=== PATIENT | male | born 1975 | race Asian ===

== ENCOUNTER 2022-08-26 13:01 | Outpatient (CLI) | payer OTHER ==
[2022-08-26 16:26] VITALS: BP 138/82
--- NOTE | 2022-08-26 16:26 | SLEEP CARE CONSULTATION ---
Information from patient questionnaire entered by Josefa Lazo. I have reviewed and concur with the information entered by Josefa Lazo. This document represents the service I personally performed and the decisions made by me, Coby Salazar MD, [facility]. History of Present Illness Service Date and Time: 08/26/2022 1301 Reason for Visit: New patient Chief Complaint: reports: Other (F/U) Date of Onset: 2021 Usual bedtime: 9PM Time it takes to fall asleep: 15-30MIN Snores at night: Yes Observed to quit breathing while asleep: Yes Sleeps alone due to snoring: Yes Number of times waking at night: 3-4 Reasons for waking at night: reports: Other (UNKNOWN) Toss, Turn, or Twitch while sleeping: Yes Recalls having dreams: Yes Usually gets out of bed at: 515AM Feels refreshed in the morning: Yes Morning headache: No Sleepy or fatigued during the day: Yes Ever fallen asleep while driving: No Takes day naps: No Dreams during day naps: No Prior sleep studies: Yes Year and Where: [facility] 2020 Additional HPI information: I had the pleasure of seeing Mr. Edwards today regarding obstructive sleep apnea- hypopnea. As you know, he is a 47-year-old gentleman who was diagnosed with the sleep-disordered breathing in [facility]. The AHI was 28 by a home sleep apnea test (HSAT). He was prescribed a CPAP device set at 5 15 cmH2O. He uses occasionally. The compliance data show usage in 59 out of the past 90 nights, averaging 6 hours a night. The residual AHI is 3.0 and average air leak is 0.1 L/minute. He wears a Respironics DreamWear nasal pillows. He complains of not being able to roll around. He gets his supplies from [facility]. He finds the treatment beneficial. 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 Patient is and lives in . Have you smoked in the past 12 months: No Years of smokin Quit date: 2010 Alcohol use: Yes Alcohol amount and frequency: 1 SERVING 1XMONTH Caffeine use: No Family History Family history of sleep disordered breathing: Yes Family Hx Sleep Apnea: Mother: Snoring, Father: Snoring, Sleep apnea - Untreated, Sibling: Snoring, Sleep apnea - Untreated Allergies and Home Medications Known drug allergies: No Drug allergies reviewed: Yes Home medication list reviewed: Yes Review of Systems Weight gain over past 5 years: 30 Cardiovascular: reports: high blood pressure Gastrointestinal: reports: heartburn, nausea, vomitting, abdominal pain Neurological: reports: headaches Psychiatric: reports: depression Ear/Nose/Throat: reports: nasal congestion, sinus problems, dry mouth/throat Endocrine: denies: thyroid disease, history of goiter, sluggishness, too hot or cold, excessive thirst, increased appetite, increased urination, unexplained weakness, other Musculoskeletal: reports: joint pain, back pain Immunologic: denies: sneezing, rash, itching, allergies to food or environment, other Physical Exam Vital signs obtained and entered by: JOSEFA Pope MA Blood Pressure: 138/82 (LEFT ARM) Cuff size: regular Heart Rate: 79 O2 Saturation: 96 Height: 4 ft 8 in Weight: 231 lb 6.4 oz Body Mass Index: 51.8 BMI Classification: Morbidly Obese Neck circumference: 17.25 Mood/affect: Normal HEENT: No craniofacial malformation Nostrils: patent to airflow Turbinates: normal Septum: midline Mouth and throat: narrow oropharynx Soft palate: long Hard palate: normal Uvula: normal Uvula visualization: 25% Mallampati Class III Tongue: normal in size Tonsils: small Chin and jaw: normal size and position Neck: normal w/o lymphadenopathy or thyromegaly Heart: regular rate and rhythm Lungs: clear bilaterally Extremities: no edema or clubbing Neurologic: intact Impression and Plan IMPRESSION: 1. Obstructive Sleep Apnea-Hypopnea Syndrome, moderate as previously diagnosed. The patient has [id number] compliance. The current pressure setting appears effective and comfortable. Narrow oropharynx and obesity are common predisposing factors for obstructive sleep apnea-hypopnea syndrome. The patient was encouraged to use his CPAP more often. He may want to try a nasal mask, e.g. Respironics DreamWisp nasal mask which may stay on better when he rolls to his side. Plan: 1. Continue with autoCPAP set at 5 15 cmH2O. 2. Try a nasal mask 3. Try to lose weight. 4. Prescription made for supplies and sent to [facility]. 5. Return for follow up in a year or earlier if there is any problem. Counseling Topics: Weight control Prescriptions: Device supplies Follow up with Sleep Care in: 1 year Visit Type: In Office Time Spent with Patient (minutes): 15 Provider Statement: I spent 100% of the Face to Face Visit with the patient with greater than 50% spent counseling the patient and coordination of care.
== END 2022-08-26 13:02 | disposition home or self-care (01) ==
LOC: SC 13:01
PROVIDERS: ATTEND Internal Medicine Pulmonary Disease
DX: G47.33 Obstructive sleep apnea (adult) (pediatric) (principal); E66.01 Morbid (severe) obesity due to excess calories; Z68.43 Body mass index [BMI] 50.0-59.9, adult; Z87.891 Personal history of nicotine dependence
CPT/HCPCS: 99202; 99212

== ENCOUNTER 2024-01-08 10:09 | Outpatient (CLI) | payer OTHER ==
--- NOTE | 2024-01-08 10:43 | Sleep Patient Instructions ---
Sleep Center Visit Summary - Patient Visit Information Reason for Visit: Annual follow-up for PAP therapy - Patient Instructions Additional Instructions: You will continue with CPAP therapy with pressure set at 5-15 cmH2O. A supply prescription will be updated with your DME supplier. We encourage you to continue to try to lose weight. Please follow up with the sleep care office in 1 year. - Clinic Information Contact: [facility] [address] [place] [address] [email or web address] T: [phone]
--- NOTE | 2024-01-08 10:46 | SLEEP CARE CONSULTATION ---
Information from patient questionnaire entered by China Lazo. I have reviewed and concur with the information entered by China Lazo. This document represents the service I personally performed and the decisions made by , Katie Turner ARNP. History of Present Illness Service Date and Time: 01/08/2024 1009 Previous diagnosis: Moderate, Obstructive Sleep Apnea-Hypopnea Syndrome AHI: 28 (2020) Reason for follow up: annual (LAST SEEN 08/2022) Equipment type: CPAP (RESMED 11 04/07/21) Equipment obtained from: Other ([facility], getting supplies) Mask style: Nasal Mask brand: Respironics (Dreamwear, small cushion) Backup mask available: Yes Last cushion change: last week Prior sleep studies: Yes Year and Where: 2020 HPI additional information: CRUZITO ANDRADE was diagnosed to have moderate, AHI 28, obstructive sleep apnea- hypopnea syndrome and returned today for CPAP therapy annual follow-up. Sleep Study - Results Prior sleep studies: Yes Year and Where: 2020 CPAP Compliance Data - Data Reviewed with Patient Average duration of nightly device use: 6 HRS 29 MINS Compliance rate %: 82 (01/09/23-; 330/365 days used) Current pressure setting (cmH2O): 5-15 Average residual AHI: 1.5 Central apnea: 0.3 Obstructive apnea: 0.4 Hypopnea: 0.7 Average large leak: 0.1 L/min Subjective Missed days of use due to: reports: family emergency, illness Patient concerns: reports: other (ITCHY THROAT AND PHLEM BUILD UP). denies: aerophagia, mask discomfort, air blowing in eyes, mask leak noise, condensation in mask/hose, nasal congestion, dry mouth, nose, throat, epistaxis Observed to snore while using device: No Current pressure setting perceived as: comfortable On therapy, patient: reports: sleeping better, awakening more refreshed, being more awake and alert during the day, more rested overall. denies: drowsiness while driving Initial [place] Sleepiness Scale score: 11 (08/26/22) Current [place] Sleepiness Scale score: 8 (01/08/24) Allergies and Home Medications Known drug allergies: No Drug allergies reviewed: Yes Home medication list reviewed: Yes (trazodone) Allergy and home medication list: Allergies No Known Drug Allergies Allergy (Verified 01/08/24 10:32) Home Medications Atorvastatin [Lipitor] See Rx Instructions .ROUTE .COMPLEX 01/08/24 [History] Chlorthalidone See Rx Instructions .ROUTE .COMPLEX 01/08/24 [History] Citalopram [CeleXA] See Rx Instructions .ROUTE .COMPLEX 01/08/24 [History] Lisinopril [Zestril] See Rx Instructions .ROUTE .COMPLEX 01/08/24 [History] Naproxen [Naprosyn] See Rx Instructions .ROUTE .COMPLEX 01/08/24 [History] Ondansetron Odt [Zofran Odt] See Rx Instructions .ROUTE .COMPLEX 01/08/24 [History] Pantoprazole [Protonix] See Rx Instructions .ROUTE .COMPLEX 01/08/24 [History] Tidalifil See Rx Instructions .ROUTE .COMPLEX 01/08/24 [History] traZODone [Desyrel] See Rx Instructions .ROUTE .COMPLEX 01/08/24 [History] Review of Systems Review of systems same as previous: Yes (no changes) Physical Exam Vital signs obtained and entered by: CHINA Pope MA Blood Pressure: 160/82 (LEFT ARM) Cuff size: long Heart Rate: 97 O2 Saturation: 100 Height: 5 ft 6 in Weight: 204 lb Weight change since last visit: 27 lb loss Body Mass Index: 32.9 BMI Classification: Obese Impression and Plan 1. Obstructive Sleep Apnea-Hypopnea Syndrome, moderate, with good treatment compliance and good apnea control. On CPAP therapy, the patient has better sleep quality and is more rested overall. He has had a occasional itchy, phlegmy throat recently. He denies knowing if he had allergies. He can adjust his humidity to see if that will reduce symptoms. He voiced understanding. Patient has significant improvement of their sleep apnea and is satisfied with current CPAP therapy. Patient denies problems with oral dryness, nasal congestion, epistaxis, skin irritation or aerophagia. Patient's apnea severity and rationale for treatment to reduce apnea, improve sleep quality and reduce cardiovascular and cerebrovascular events was reviewed. I also reviewed the benefit of consistent device use of CPAP for hypertension, diabetes, gastric reflux, depression. 2. Obesity, unspecified. Currently patients BMI is 32.9. He has lost weight. Obesity increases the risk of apnea, CPAP pressure requirements and overall health risks especially cardiovascular and diabetes. Thus patient is advised to continue to try to lose weight. * Continue auto CPAP pressure at 5-15 cmH2O * Update supply prescription. * Notify me if snoring with mask or feeling that the pressure is too much or too little * Attempt to lose weight * Call this office if any problems using CPAP * Return for follow up in 12 months, or sooner if concerns arise Counseling Topics: Spare mask, Weight loss health impact Prescriptions: Device supplies Follow up with Sleep Care in: 1 year Visit Type: In Office Time Spent with Patient (minutes): 21 Provider Statement: I spent 100% of the Face to Face Visit with the patient with greater than 50% spent counseling the patient and coordination of care.
[2024-01-08 10:55] VITALS: BP 160/82; O2SAT 100
== END 2024-01-08 10:10 | disposition home or self-care (01) ==
LOC: SC 10:09
PROVIDERS: ATTEND Nurse Practitioner Family
DX: G47.33 Obstructive sleep apnea (adult) (pediatric) (principal); E66.9 Obesity, unspecified; Z68.32 Body mass index [BMI] 32.0-32.9, adult
CPT/HCPCS: 99212; 99213